=== PATIENT | female | born 1995 | race Caucasian/White ===

== ENCOUNTER 2017-09-06 18:20 | Emergency (ER) | payer OTHER ==
[~2017-09-06] VITALS: Ht 157.5 cm; Wt 45.4 kg
[~2017-09-06 18:20] MED LIST: DIFLUCAN150 MG PO; MEDROLDOSEPACK PO
[2017-09-06 18:43] VITALS: BP 132/87
== END 2017-09-06 19:00 | disposition home or self-care (01) ==
LOC: M.ERS 18:20
DX: J00 Acute nasopharyngitis [common cold] (principal); F17.200 Nicotine dependence, unspecified, uncomplicated

== ENCOUNTER 2017-12-11 19:27 | Emergency (ER) | payer OTHER, MEDICAID ==
[~2017-12-11] VITALS: Ht 157.5 cm; Wt 47.6 kg
[2017-12-11 19:34] VITALS: BP 155/89
[2017-12-11] MEDS ORDERED: XANAX 0.5 MG0.5 MG (19:39)
--- NOTE | 2017-12-12 17:51 | EKG ---
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
== END 2017-12-11 20:12 | disposition left against medical advice (07) ==
LOC: M.ERS 19:27
DX: R00.0 Tachycardia, unspecified (principal); F41.9 Anxiety disorder, unspecified; F32.9 Major depressive disorder, single episode, unspecified; F17.210 Nicotine dependence, cigarettes, uncomplicated

== ENCOUNTER 2018-02-07 18:54 | Emergency (ER) | payer OTHER ==
[~2018-02-07] VITALS: Ht 162.6 cm; Wt 43.1 kg
[~2018-02-07 18:54] MED LIST changes: +XANAX 0.5 MG0.5 MG
[2018-02-07 19:00] VITALS: BP 113/71
[2018-02-07] MEDS ORDERED: MECLIZINE HCL25 MG PO (19:04)
== END 2018-02-07 19:27 | disposition home or self-care (01) ==
LOC: M.ERS 18:54
DX: G89.29 Other chronic pain (principal); H92.01 Otalgia, right ear; F41.9 Anxiety disorder, unspecified; F32.9 Major depressive disorder, single episode, unspecified; F17.200 Nicotine dependence, unspecified, uncomplicated

== ENCOUNTER 2018-09-22 13:19 | Emergency (ER) | payer OTHER, MEDICAID ==
[~2018-09-22] VITALS: Ht 160 cm; Wt 45.4 kg
[~2018-09-22 13:19] MED LIST changes: +MECLIZINE HCL25 MG PO
[2018-09-22 13:52] LABS: ABSOLUTE LYMPHOCYTES 0.8 thou/uL (0.8-5.3); ABSOLUTE MONOCYTES 0.3 thou/uL (0.0-1.2); ABSOLUTE NEUTROPHILS 3.7 thou/uL (1.6-8.1); BASOPHILS 0.2 %; EOSINOPHILS 0.9 %; HEMATOCRIT 39.9 % (37.0-47.0); HEMOGLOBIN 13.9 gm/dL (12.0-15.0); LYMPHOCYTES 16.8 %; MCH 30.7 pg (26.0-34.0); MCHC 34.8 g/dL (28.0-37.0); MONOCYTES 6.7 %; MPV 9.4 fl. (7.2-11.1); NUCLEATED RBCS 0 /100WBC; PLATELET COUNT* 139 thou/uL (150-400); POLYS 75.4 %; RBC 4.53 mil/uL (4.20-5.00); RDW-CV 12.6 % (10.5-14.5)
[2018-09-22 14:17] LABS: URINE BLOOD NEGATIVE (Negative); URINE CLARITY CLEAR; URINE COLOR DARK YELLOW; URINE GLUCOSE-RANDOM NEGATIVE (Negative); URINE KETONES 1+ (Negative); URINE LEUKOCYTES-REFLEX NEGATIVE (Negative); URINE NITRITE-REFLEX NEGATIVE (Negative); URINE PROTEIN TRACE (Negative); URINE SPECIFIC GRAVITY >= 1.030 (1.005-1.030); URINE UROBILINOGEN 0.2 E.U./dl (0.2-1.0)
[2018-09-22 14:19] LABS: ICTOTEST (BILI CONFIRMATORY) Negative (Negative); URINE BILIRUBIN 1+ (Negative)
[2018-09-22 14:20] LABS: INFLUENZA A ANTIGEN None Detected (None Detect); INFLUENZA B ANTIGEN None Detected (None Detect)
[2018-09-22 14:50] LABS: CALCIUM 8.4 mg/dL (8.5-10.1); CREATININE 0.8 mg/dL (0.6-1.3); POTASSIUM 3.6 mmol/L (3.5-5.1)
[2018-09-22] MEDS ORDERED: PROMETHAZINE HC25 M1 PO (14:52)
[2018-09-22] MEDS ORDERED: BENTYL 20 MG TA20 M1 PO (14:52)
[2018-09-22 15:26] VITALS: BP 103/69
== END 2018-09-22 15:31 | disposition home or self-care (01) ==
LOC: M.ERS 13:19
PROVIDERS: Nurse Practitioner
DX: A08.4 Viral intestinal infection, unspecified (principal); F17.210 Nicotine dependence, cigarettes, uncomplicated; F41.9 Anxiety disorder, unspecified; F32.9 Major depressive disorder, single episode, unspecified

== ENCOUNTER 2019-09-04 20:06 | Emergency (ER) | payer OTHER, MEDICAID ==
[~2019-09-04] VITALS: Ht 157.5 cm; Wt 45.8 kg
[~2019-09-04 20:06] MED LIST changes: +BENTYL 20 MG TA20 M1 PO; +PROMETHAZINE HC25 M1 PO
[2019-09-04] MEDS ORDERED: LEXAPRO 10 MG T10 M1 PO (20:16)
[2019-09-04] MEDS ORDERED: XANAX 0.5 MG0.5 M1 PO (20:16)
[2019-09-04] MEDS ORDERED: MECLIZINE HCL25 M1 PO (20:17)
[2019-09-04 20:48] VITALS: BP 107/73
== END 2019-09-04 20:49 | disposition home or self-care (01) ==
LOC: M.ERS 20:06
DX: H81.09 Meniere's disease, unspecified ear (principal)